=== PATIENT | male | born 1960 | race African-American/Black ===

== ENCOUNTER 2016-08-03 15:43 | Emergency (ER) | payer MEDICAID ==
--- NOTE | 2016-08-03 16:06 | Emergency Department Record ---
History of Present Illness - General Chief complaint: Lower Extremity Pain Stated complaint: LEFT LEG AND HIP PAIN Time Seen by Provider: 08/03/16 15:56 Source: Patient Mode of Arrival: Ambulatory Limitations: No limitations - History of Present Illness Initial comments: 55 yo male presents with left hip pain for several days. The pain starts in the lower left back and radiates down the leg. No specific injury. No swelling , redness, fever. No weakness, no foot drop. No numbness or tingling. The pain is worse at night. No history of back surgery. He works on his feet long hours. MD Complaint: Extremity pain, Joint pain -: Days(s) Location: Left, Other (hip and low back) -: Yes Arthralgia Radiation: Proximal Quality: Aching Consistency: Constant Improves with: Rest Worsens with: Exertion, Walking, Weight bearing, Other (Certain positions) Associated Symptoms: Denies other symptoms, Arthralgias - Related Data Home Medications Medication Instructions Recorded Confirmed Last Taken Aspirin [Aspirin EC] 81 mg PO DAILY 06/07/15 08/03/16 06/07/15 Pravastatin Sodium [Pravastatin 20 mg PO QHS 06/07/15 08/03/16 06/06/15 Sodium] Previous Rx's Medication Instructions Recorded Ibuprofen [Motrin] 800 mg PO Q8H PRN #20 tab 08/03/16 Prednisone [Prednisone 20Mg] 20 mg PO DAILY #5 tab 08/03/16 Allergies Allergy/AdvReac Type Severity Reaction Status Date / Time No Known Drug Allergies Allergy Verified 06/07/15 19:16 Review of Systems Constitutional: Denies: Chills, Fever, Malaise, Weakness Eyes: Denies: Eye discharge ENT: Denies: Congestion, Throat pain Respiratory: Denies: Cough Cardiovascular: Denies: Chest pain, Palpitations, Syncope Endocrine: Denies: Fatigue Gastrointestinal: Denies: Abdominal pain, Diarrhea, Nausea, Vomiting Genitourinary: Denies: Dysuria, Frequency, Hematuria Musculoskeletal: Reports: As per HPI, Arthralgia Skin: Denies: Bruising, Change in color, Rash Neurological: Denies: Confusion, Headache, Numbness, Tingling, Tremors, Vertigo , Weakness Psychiatric: Denies: Anxiety Hematological/Lymphatic: Denies: Blood Clots, Easy bleeding, Easy bruising Past Medical History - SOCIAL HISTORY Smoking Status: Never smoker - RESPIRATORY Hx Respiratory Disorders: No - CARDIOVASCULAR Hx Cardio Disorders: Yes Comment:: bradycardia/hypercholesteremia - NEURO Hx Neuro Disorders: No - GI Hx GI Disorders: No - Hx Genitourinary Disorders: No - ENDOCRINE Hx Endocrine Disorders: No - MUSCULOSKELETAL Hx Musculoskeletal Disorders: No - PSYCH Hx Psych Problems: No - HEMATOLOGY/ONCOLOGY Hx Hematology/Oncology Disorders: No Physical Exam - General General Appearance: Alert, Oriented x3, Cooperative, No acute distress Limitations: No limitations - Head Head exam: Atraumatic, Normal inspection - Eye Eye exam: Normal appearance, PERRL. negative: Conjunctival injection, Periorbital swelling - ENT ENT exam: Normal exam, Mucous membranes moist Ear exam: Normal external inspection Nasal Exam: Normal inspection Mouth exam: Normal external inspection Teeth exam: Normal inspection Throat exam: Normal inspection - Neck Neck exam: Normal inspection, Full ROM. negative: Tenderness - Respiratory Respiratory exam: Normal lung sounds bilaterally. negative: Respiratory distress - Cardiovascular Cardiovascular Exam: Regular rate, Normal rhythm, Normal heart sounds Peripheral Pulses: 2+: Radial (R), Radial (L) - GI/Abdominal GI/Abdominal exam: Soft. negative: Tenderness - Rectal Rectal exam: Deferred - exam: Deferred - Extremities Extremities exam: Normal inspection, Full ROM, Tenderness (tender left lateral hip). negative: Calf tenderness, Joint swelling, Normal capillary refill, Pedal edema - Back Back exam: Reports: Normal inspection, Full ROM, Muscle spasm, Paraspinal tenderness, Tenderness, Vertebral tenderness (low right lumbar). Denies: CVA tenderness (R), CVA tenderness (L) - Neurological Neurological exam: Alert, Normal gait, Oriented X3, Reflexes normal. negative: Altered, Motor sensory deficit - Psychiatric Psychiatric exam: Normal affect, Normal mood. negative: Agitated, Anxious - Skin Skin exam: Dry, Intact, Normal color, Warm. negative: Cyanosis, Diaphoretic, Erythema Course - Reevaluation(s) Reevaluation #1: the XR of the hip and lumbar were reviewed no acute changes of the lumbar, mild spurring of the hip DC home for follow up with the PCP is this continues 08/03/16 17:05 Disposition Disposition: Discharge Clinical Impression: Sciatica, Hip pain, left Disposition: Home, Self-Care Condition: (1) Good Instructions: Lumbar Radiculopathy (ED) Additional Instructions: Call your doctor for close follow up Return or be seen if worse, weak, numb or any new concerns Prescriptions: Ibuprofen [Motrin] 800 mg PO Q8H PRN #20 tab PRN Reason: Pain - General Prednisone [Prednisone 20Mg] 20 mg PO DAILY #5 tab Forms: Patient Portal Access Time of Disposition: 17:08
--- NOTE | 2016-08-04 12:55 | RADIOLOGY REPORT ---
EXAM: LEFT HIP HISTORY: PAIN LEFT HIP THAT RADIATES DOWN THE LEFT LOWER LEG. TECHNIQUE: AP view of the pelvis and AP and lateral views of the left hip were obtained. Comparison: None. Encounter: Not applicable (no history of trauma). FINDINGS: The left hip appears intact. No fracture or dislocation seen. The joint space is maintained. Minor spurring at the greater trochanter. IMPRESSION: MINOR SPURRING AT THE GREATER TROCHANTER. THE LEFT HIP IS OTHERWISE NEGATIVE. JOB NUMBER: [id number] MTDD
--- NOTE | 2016-08-04 12:59 | RADIOLOGY REPORT ---
EXAM: LUMBAR SPINE, AP AND LATERAL VIEWS HISTORY: LEFT HIP PAIN THAT RADIATES DOWN THE LEFT LOWER LEG. UNSURE OF WHAT CAUSED PAIN. NO HISTORY OF TRAUMA. TECHNIQUE: AP and lateral views of the lumbar spine were obtained. Comparison: None. Encounter: Not applicable. FINDINGS: The lumbar spine appears essentially negative in the AP and lateral study. The lumbar intervertebral disk spaces are maintained. No prominent degenerative change evident. No fracture evident. Very slight tilting of the spine to the left on the AP view may simply be due to positioning or spasm. IMPRESSION: THE LUMBAR SPINE APPEARS ESSENTIALLY NEGATIVE WITH MINOR TILTING TO THE LEFT. JOB NUMBER: [id number] MTDD
== END 2016-08-03 17:41 | disposition home or self-care (01) ==
LOC: ER 15:43
DX: M54.42 Lumbago with sciatica, left side (principal); M25.552 Pain in left hip
CPT/HCPCS: 72100; 99283